=== PATIENT | female | born 1965 | race Caucasian/White ===

== ENCOUNTER 2017-04-19 07:21 | Day surgery (SDC) | payer BC, OTHER ==
[~2017-04-19 07:21] MED LIST: Midazolam 1 MG/ML 2 ML SDV ONE; fentaNYL 100 MCG/2 ML SDV ONE
[2017-04-19] MEDS ORDERED: Sodium Chloride 0.9% 10 ML Syringe FLUSH PRN (08:30)
[2017-04-19] MEDS ORDERED: Dextrose 5%-0.45% NaCl 1,000 ML IV SCH (08:30)
[2017-04-19] MEDS ORDERED: fentaNYL 100 MCG/2 ML SDV IV ONE ×7 (08:36→17:10)
[2017-04-19] MEDS ORDERED: Midazolam 1 MG/ML 2 ML SDV IV ONE ×9 (08:37→17:10)
[2017-04-19 11:11] VITALS: BP 108/72
--- NOTE | 2017-04-19 14:21 | OR ---
DATE: 04/19/2017 PROCEDURE: Total colonoscopy. INSTRUMENT USED: CF-H180AL Olympus video colonoscope. PCF-160AL Olympus video colonoscope. PREMEDICATIONS: Fentanyl 175 mcg intravenous, Versed 6 mg intravenous, and nasal O2 cannula. The procedure was done under pulse oximetry, BP recording, and consulting technical director. INDICATION: The patient with chronic constipation, unexplained and not responsive to medical measures. Colonoscopic examination is done for detection of any polypoid lesions and removal, endoscopic hemostasis therapy if needed. DESCRIPTION OF PROCEDURE: Initial rectal exam was unremarkable. Rigid anoscopy was normal. The colonoscope was passed with ease up to the area around the proximal transverse colon where there considerable amount of deformity and some stricture related to adhesions preventing further advancement of the instrument. No vascular ectasia. No large isolated ulcerations seen. No evidence of diffuse inflammatory bowel disease in the form of friability, contact bleeding, or ulcerations. No polyp or tumor mass identified. The scope was withdrawn and was replaced by PCF-160AL Olympus colonoscope. The scope was passed with ease up to the area of proximal transverse colon, where there was again deformed area noted, but the tip of the scope could be passed proximally up to the ileocecal area. Photographs were taken of the normal-appearing cecum, identified by landmarks of appendiceal orifice and double-bulged ileocecal folds. Probing the proximal sides of folds and flexures, using adequate distention and clearing of the stool material, withdrawal of the scope was made, cecum to rectum time over 6 minutes. No bleeding was noted from any of the visualized areas at the completion of examination. IMPRESSION: Normal study. The patient tolerated the procedure well. [facility] /[id number]
== END 2017-04-19 11:30 | disposition home or self-care (01) ==
LOC: DL.ENDO 07:21
PROVIDERS: ATTEND Internal Medicine Gastroenterology
DX: Z12.11 Encounter for screening for malignant neoplasm of colon (principal); F42.9 Obsessive-compulsive disorder, unspecified; Z90.710 Acquired absence of both cervix and uterus; Z79.899 Other long term (current) drug therapy
CPT/HCPCS: 45378; J2250; J3010; J7042

== ENCOUNTER 2023-06-20 06:33 | Day surgery (SDC) | payer OTHER ==
[~2023-06-20 06:33] MED LIST changes: +Dextrose 5%-0.45% NaCl 1,000 ML IV SCH; -Midazolam 1 MG/ML 2 ML SDV ONE; -fentaNYL 100 MCG/2 ML SDV ONE
[2023-06-20 08:38] VITALS: BP 115/99; PULSE 67
== END 2023-06-20 08:50 | disposition home or self-care (01) ==
LOC: DL.ENDO 06:33
PROVIDERS: ATTEND Internal Medicine Gastroenterology
DX: R10.12 Left upper quadrant pain (principal); K66.0 Peritoneal adhesions (postprocedural) (postinfection); E66.09 Other obesity due to excess calories; R46.81 Obsessive-compulsive behavior; Z68.28 Body mass index [BMI] 28.0-28.9, adult; Z90.710 Acquired absence of both cervix and uterus; Z87.59 Personal history of other complications of pregnancy, childbirth and the puerperium; Z79.899 Other long term (current) drug therapy
CPT/HCPCS: 00812; J7042